=== PATIENT | female | born 1965 | race Caucasian/White ===

== ENCOUNTER 2016-11-04 08:30 | Day surgery (SDC) | payer BC, OTHER ==
[~2016-11-04 08:30] MED LIST: Lactated Ringers 1,000 ML IV SCH; Lidocaine 1%/Sod Bicarbonate in NS 8.4% 1 ML Syringe PRN; Sodium Chloride 0.9% 10 ML Syringe FLUSH PRN
--- NOTE | 2016-11-04 09:32 | PCM.PREANE ---
Preanesthetic Assessment - Anesthesia/Transfusion/Family Hx Anesthesia History: Prior Anesthesia Without Reaction Family History of Anesthesia Reaction: No Transfusion History: No Prior Transfusion(s) - Review of Systems General: No Symptoms Pulmonary: No Symptoms Cardiovascular: No Symptoms Gastrointestinal: Abdominal pain (prolapsed bladder) Neurological: No Symptoms Other: Reports: None - Physical Assessment NPO Status Date: 11/03/16 NPO Status Time: 23:45 O2 Sat by Pulse Oximetry: 97 Respiratory Rate: 16 Vital Signs: Last Vital Signs Temp 97.2 F 11/04/16 08:35 Pulse 66 11/04/16 08:35 Resp 16 11/04/16 08:35 BP 120/77 11/04/16 08:35 Pulse Ox 97 11/04/16 08:35 Height: 5 ft 8 in Weight: 87.543 kg ASA Class: 2 Mental Status: Alert & Oriented x3 Airway Class: Mallampati = 1 Dentition: Reports: Normal Dentition Thyro-Mental Finger Breadths: 3 Mouth Opening Finger Breadths: 3 ROM/Head Extension: Full Lungs: Clear to auscultation, Normal respiratory effort Cardiovascular: Regular Rate, Regular Rhythm - Allergies Allergies/Adverse Reactions: Allergies Allergy/AdvReac Type Severity Reaction Status Date / Time metals Allergy Blisters Uncoded 11/03/16 13:56 - Blood Blood Available: No - Acknowledgements Anesthesia Type Planned: MAC Pt an Appropriate Candidate for the Planned Anesthesia: Yes Alternatives and Risks of Anesthesia Discussed w Pt/Guardian: Yes Pt/Guardian Understands and Agrees with Anesthesia Plan: Yes PreAnesthesia Questionnaire - Past Health History Medical/Surgical History: Denies Medical/Surgical History HEENT History: Reports: None Cardiovascular History: Reports: None Respiratory History: Reports: None Gastrointestinal History: Reports: None, GERD (at times) [employer] AND [employer]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 Musculoskeletal History: Reports: None Neurological History: Reports: None Psychiatric History: Reports: None Endocrine/Metabolic History: Reports: None Hematologic History: Reports: None Immunologic History: Reports: None Oncologic (Cancer) History: Reports: None Dermatologic History: Reports: None - Past Surgical History Head Surgeries/Procedures: Reports: None Female Surgical History: Reports: Hysterectomy, Oophorectomy - History Comment History Comment: vitamins prn - SUBSTANCE USE Smoking Status *Q: Current Every Day Smoker (on and off for 30 years-.5 ppd) Tobacco Use Within Last Twelve Months: Cigarettes Second Hand Smoke Exposure: Yes Days Per Week of Alcohol Use: 1 (3 to 4 times a year) Recreational Drug Use History: No - HOME MEDS Home Medications: Home Meds . [No Known Home Meds] 11/03/16 [History] - CURRENT (IN HOUSE) MEDS Current Meds: Current Medications Lactated Ringer's (Ringers, Lactated) 1,000 mls @ 125 mls/hr IV ASDIRECTED TRAVIS Stop: 11/04/16 23:00 Last Admin: 11/04/16 08:50 Dose: 125 mls/hr Lidocaine/Sodium Bicarbonate (Buffered Lidocaine 1% In Ns 8.4%) 0.25 ml .XX ONETIME PRN PRN Reason: Prior to IV Start Stop: 11/04/16 18:00 Last Admin: 11/04/16 08:50 Dose: 0.25 ml Sodium Chloride (Saline Flush) 10 ml FLUSH ASDIRECTED PRN PRN Reason: Keep Vein Open Stop: 11/04/16 18:00
[2016-11-04] MEDS ORDERED: Propofol 200 MG/20 ML SDV ONE ×2 (09:54→10:44)
[2016-11-04] MEDS ORDERED: fentaNYL 100 MCG/2 ML SDV ONE (09:54)
[2016-11-04] MEDS ORDERED: Lidocaine 1% 4 ML ONE (09:55)
[2016-11-04] MEDS ORDERED: Midazolam 1 MG/ML 2 ML SDV ONE (09:55)
--- NOTE | 2016-11-04 10:36 | PCM.OPNOTE ---
- General Post-Op/Procedure Note Date of Surgery/Procedure: 11/04/16 Operative Procedure(s): colonoscopy with cold forceps cecal polypectomy, and hot snare sigmoid polypectomy, and cold forceps sigmoid polypectomy x1 Findings: 1. external hemorrhoids 2. sigmoid diverticulosis 3. sigmoid polyp times 2 less than a centimeter each 4. cecal polyp times 1 less than a centimeter Pre Op Diagnosis: screening Post-Op Diagnosis: 1. external hemorrhoid. 2. sigmoid diverticulosis. 3. cecal polyp. 4. two sigmoid polyps Anesthesia Technique: MAC, Moderate sedation Primary Surgeon: Paul Balbuena Pathology: 8mm sessile sigmoid polyps times 2 6 mm cecal polyp EBL in mLs: 0 Complications: None Condition: Good Free Text/Narrative:: After adequate IV sedation and analgesia was obtained The patient was placed on her left side. Perianal inspection revealed an external hemorrhoid. A lubricated colonoscope was inserted into the rectum and advanced to the cecum without difficulty. The bowel preparation was adequate. There was a cecal polyp , which was removed with cold forceps. The cecum, right colon, and transverse colons were otherwise unremarkable. The descending colon was endoscopically normal. The sigmoid had scattered uncomplicated diverticula. There was a sigmoid polyp, which was small that was removed with cold forceps. There was also a slightly larger sigmoid polyp, removed with hot snare. Both specimens were retrieved. The rectum in both views was unremarkable.Photographs were taken for the patient and for the record. Air was removed, as I finished the procedure, which she tolerated well.
[2016-11-04 10:41] VITALS: BP 86/49
== END 2016-11-04 11:17 | disposition home or self-care (01) ==
LOC: JD.SDS 08:30
PROVIDERS: ATTEND Surgery
DX: Z12.11 Encounter for screening for malignant neoplasm of colon (principal); K63.5 Polyp of colon; K57.30 Diverticulosis of large intestine without perforation or abscess without bleeding; Z91.09 Other allergy status, other than to drugs and biological substances; K64.4 Residual hemorrhoidal skin tags; Z90.710 Acquired absence of both cervix and uterus; Z78.9 Other specified health status; F17.210 Nicotine dependence, cigarettes, uncomplicated
CPT/HCPCS: 45380; 45385; 88305; J2250; J3010; J7120; 00810; J2704